=== PATIENT | female | born 1975 ===

== ENCOUNTER 2019-01-18 16:21 | Observation (INO) | payer MEDICAID ==
--- NOTE | 2019-01-18 20:17 | ED PDOC ---
HPI: General Adult Time Seen by Provider: 01/18/19 18:46 Chief Complaint (Nursing): Breast Problem Chief Complaint (Provider): Right breast pain History Per: Patient History/Exam Limitations: no limitations Onset/Duration Of Symptoms: Persistent Have you had recent travel within the past 21 days to any of the following countries: [place], [place], [place] or [place]?: No Current Symptoms Are (Timing): Still Present Additional History Per: Patient Additional Complaint(s): 43yo female, otherwise well with no past medical history, comes to ER reporting right sided breast pain. Patient has been having shoulder and right back pain x 3 weeks, and 2 weeks ago she noted swelling inside her right breast. She reports over the past 2 days, she has worsening pain to the site; no redness to breath, skin changes or nipple discharge. Patient has never had a mammogram before. Past Medical History Reviewed: Historical Data, Nursing Documentation, Vital Signs Vital Signs: Last Vital Signs Temp 98.8 F 01/18/19 16:41 Pulse 110 H 01/18/19 16:41 Resp 16 01/18/19 16:41 BP 152/96 H 01/18/19 16:41 Pulse Ox 100 01/18/19 16:41 Primary Care Provider: FAMILY PROVIDER,NO - Medical History PMH: No Chronic Diseases - Surgical History Surgical History: No Surg Hx - Family History Family History: States: Other Other Family History: depression, renal failure; no history of breast cancer - Social History Current smoker - smoking cessation education provided: No Alcohol: None Drugs: Denies - Home Medications Home Medications: Ambulatory Orders Medication Instructions Recorded Acetaminophen [Tylenol Extra 1,000 mg PO Q6 PRN #30 tablet 01/19/19 Strength] - Allergies Allergies/Adverse Reactions: Allergies Allergy/AdvReac Type Severity Reaction Status Date / Time No Known Allergies Allergy Unverified 01/18/19 16:42 Review of Systems ROS Statement: Except As Marked, All Systems Reviewed And Found Negative Musculoskeletal: Positive for: Shoulder Pain (right), Back Pain (right upper back), Other (right breast) Physical Exam - Reviewed Nursing Documentation Reviewed: Yes Vital Signs Reviewed: Yes - Physical Exam Appears: Positive for: Non-toxic, No Acute Distress Head Exam: Positive for: ATRAUMATIC, NORMAL INSPECTION, NORMOCEPHALIC Skin: Positive for: Normal Color Eye Exam: Positive for: Normal appearance Neck: Positive for: Supple Cardiovascular/Chest: Positive for: Regular Rate, Rhythm, Other (palpable firm and non-mobile mass at the inner lower quadrant of the right breast. No skin changes. No erythema. No tenderness. Minimal fluctuance (?)) Respiratory: Positive for: Normal Breath Sounds. Negative for: Respiratory Distress Extremity: Positive for: Normal ROM (FROM of right upper extremity). Negative for: Tenderness, Deformity Neurological/Psych: Positive for: Awake, Alert, Normal Tone - Laboratory Results Result Diagrams: 01/18/19 20:55 01/18/19 20:55 - ECG O2 Sat by Pulse Oximetry: 100 (RA) Pulse Ox Interpretation: Normal Medical Decision Making Medical Decision Making: Impression: Right breast pain Differential: Malignancy, abscess, benign tumor, mastitis Plan: -- Labs -- US Breast -- Toradol 30mg IV 2128 Name: BROOKE OSORIO Exam Date: January 18, 2019 7:59:46 PM EDT Modality Type: SD\US\RI Description: US - BREAST UNILATERAL Gender: F Laterality: Right : 73 Referring Physician: Edith Bryson EXAM: US right Breast Complete. CLINICAL HISTORY: Pain 12-3 o'clock TECHNIQUE: Sonographic images of the whole right breast, including the retroalveolar region with image documentation utilizing a linear transducer. COMPARISON: None provided. FINDINGS: SOLID MASSES: At the 2 o'clock position; there is demonstration of a 0.8 x 0.6 x 0.7 cm solid slightly heterogeneous mass. A neoplastic process cannot be excluded. At the 3 o'clock position adjacent to the chest wall, there is demonstration of a 1.2 x 0.6 cm heterogeneous solid mass. Its margins appear spiculated. This is suspicious for neoplasm. Correlation with additional breast imaging modalities is recommended. CYSTIC MASSES: None. ARCHITECTURAL DISTORTION: None. ACOUSTICAL SHADOWING: None. SKIN THICKENING: None. AXILLARY ADENOPATHY: None. IMPRESSION: 1. At the 3 o'clock position; there is demonstration of a 1.2 x 0.6 cm solid heterogeneous mass with spiculated margins. This is suspicious for neoplasm. Correlation with additional breast imaging modalities is recommended. 2. At the 2 o'clock position, there is demonstration of a 0.8 x 0.7 cm round solid slightly heterogeneous mass. A satellite neoplasm may be present. 3. Mammographic correlation is recommended. BIRADS 0: Additional evaluation. Electronically signed on January 18, 2019 9:15:09 PM EDT by: Eric Owens M.D., M.B.A., Certified By ABR [id number] Chiu, for surgical consult [id number] Nicolas, who accepts patient for admission Imaging findings as well as plan for admission discussed with patient, who is agreeable. ---- Scribe Attestation: Documented by Camille Barton acting as a scribe for Edith Bryson MD. Provider Scribe Attestation: All medical record entries made by the Scribe were at my direction and personally dictated by me. I have reviewed the chart and agree that the record accurately reflects my personal performance of the history, physical exam, medical decision making, and the department course for this patient. I have also personally directed, reviewed, and agree with the discharge instructions and disposition. Disposition - Clinical Impression Clinical Impression: Breast mass, right, Anemia - Disposition Disposition Time: 22:00 Condition: FAIR - Pt Status Changed To: Hospital Disposition Of: Inpatient - Admit Certification Admit to Inpatient:: After my assessment, the patient will require hospitalization for at least two midnights. This is because of the severity of symptoms shown, intensity of services needed, and/or the medical risk in this patient being treated as an outpatient. - POA Present On Arrival: None
[2019-01-18 20:59] LABS: BASO % 0.5 % (0.0-2.0); EOS # 0.1 K/uL (0.0-0.7); EOS % 0.6 % (0.0-4.0); HEMOGLOBIN 11.3 g/dL (12.0-16.0); LYMPH # 2.2 K/uL (1.0-4.3); LYMPH % 26.5 % (20.0-40.0); MEAN CORPUSCULAR HEMOGLOBIN 21.6 pg (27.0-31.0); MEAN CORPUSCULAR HGB CONC 33.1 g/dL (33.0-37.0); MEAN PLATELET VOLUME 9.8 fl (7.2-11.7); MONO # 0.6 K/uL (0.0-0.8); MONO % 7.3 % (0.0-10.0); NEUT # 5.3 K/uL (1.8-7.0); NEUT % 65.1 % (50.0-75.0); RBC 5.22 Mil/uL (3.80-5.20); RED CELL DISTRIBUTION WIDTH 18.5 % (11.5-14.5); WHITE BLOOD COUNT 8.1 K/uL (4.8-10.8)
[2019-01-18 21:12] LABS: ALB/GLOB RATIO 1.2 (1.0-2.1); ALBUMIN 4.9 g/dL (3.5-5.0); ALT/SGPT 29 U/L (9-52); AST/SGOT 30 U/L (14-36); BLOOD UREA NITROGEN 6 mg/dl (7-17); CALCIUM 9.6 mg/dL (8.4-10.2); GFR NON-AFRICAN AMERICAN > 60
[2019-01-18 21:41] LABS: MEAN CELL VOLUME 65.2 fl (81.0-99.0)
--- NOTE | 2019-01-18 23:20 | CP.PCM.CON ---
<Rosie Peter - Last Filed: 01/18/19 23:17> History of Present Illness - History of Present Illness History of Present Illness: General surgery consult note for Dr. Padmaja Peter, PGY-2 Pt seen/examined at bedside 43F w/PMH sig for ovarian cysts consulted for right breast mass x 3 weeks. Pt reports noticing right upper back pain 3 weeks ago, denies trauma to back or chest. Pain radiates to medial aspect of right breast, intermittent, severe, uncomfortable. No aggravating or alleviating factors identified. Admits to breast pain with menustration. Denies fevers, chills, N & V, nipple discharge, swelling of breast tissue, skin changes of breast tissue, ever having a mammogram, changes in bowel or bladder habits, other complaints. In ED- Right breast U/S with findings of 1.2 x 0.6 cm solid heterogenous mass w/spiculated margins at 2 o'clock position; 0.8 x0.7 cm round solid slightly heterogenenous mass, possible satellite neoplasm. BIRADS 0. PMH: ovarian cysts PSH: Denies All:NKDA SH: Denies ETOH, tobacco or illicit drug use FH: non contributory LMP: 2nd week of December PMD: Dr Khadijah Feldman Review of Systems - Review of Systems All systems: reviewed and no additional remarkable complaints except - Constitutional Constitutional: absent: Chills, Fever - Cardiovascular Cardiovascular: absent: Chest Pain - Respiratory Respiratory: absent: Cough - Gastrointestinal Gastrointestinal: absent: Abdominal Pain, Nausea, Vomiting - Genitourinary Genitourinary: absent: Difficulty Urinating, Hematuria - Reproductive: Female Reproductive:Female: Normal Menses. absent: Post Menopausal - Musculoskeletal Musculoskeletal: Back Pain - Integumentary Integumentary: absent: Dry Skin, New Lesions, Rash, Skin Pain - Neurological Neurological: absent: Weakness Past Patient History - Past Social History Alcohol: None Drugs: Denies - PSYCHIATRIC Hx Substance Use: No Meds Allergies/Adverse Reactions: Allergies Allergy/AdvReac Type Severity Reaction Status Date / Time No Known Allergies Allergy Unverified 01/18/19 16:42 Physical Exam - Constitutional Appears: Non-toxic, No Acute Distress - Head Exam Head Exam: ATRAUMATIC, NORMAL INSPECTION, NORMOCEPHALIC - Eye Exam Eye Exam: EOMI, Normal appearance - ENT Exam ENT Exam: Mucous Membranes Moist, Normal Exam - Neck Exam Neck exam: Positive for: Full Rom, Normal Inspection - Respiratory Exam Respiratory Exam: NORMAL BREATHING PATTERN Additional comments: Right breast with palpable tender mass at 3 o'clock position. No skin changes or nipple retraction bilaterally. No other lesions palpable. - Cardiovascular Exam Cardiovascular Exam: REGULAR RHYTHM, +S1, +S2 - GI/Abdominal Exam GI & Abdominal Exam: Normal Bowel Sounds, Soft. absent: Tenderness - Extremities Exam Extremities exam: Positive for: normal inspection - Back Exam Back exam: tenderness (right scapular area) - Neurological Exam Neurological exam: Alert, CN II-XII Intact, Oriented x3 - Psychiatric Exam Psychiatric exam: Normal Affect, Normal Mood - Skin Skin Exam: Dry, Intact, Normal Color, Warm Results - Vital Signs Recent Vital Signs: Last Vital Signs Temp 98.8 F 01/18/19 16:41 Pulse 110 H 01/18/19 16:41 Resp 16 01/18/19 16:41 BP 152/96 H 01/18/19 16:41 Pulse Ox 100 01/18/19 22:10 - Labs Result Diagrams: 01/18/19 20:55 01/18/19 20:55 Labs: Laboratory Results - last 24 hr 01/18/19 01/18/19 01/18/19 20:55 20:55 20:55 WBC 8.1 RBC 5.22 H Hgb 11.3 L Hct 34.0 MCV 65.2 L MCH 21.6 L MCHC 33.1 RDW 18.5 H Plt Count 316 MPV 9.8 Neut % (Auto) 65.1 Lymph % (Auto) 26.5 [place] % (Auto) 7.3 Eos % (Auto) 0.6 Baso % (Auto) 0.5 Neut # (Auto) 5.3 Lymph # (Auto) 2.2 [place] # (Auto) 0.6 Eos # (Auto) 0.1 Baso # (Auto) 0.0 Sodium 137 Potassium 3.8 Chloride 100 Carbon Dioxide 26 Anion Gap 15 BUN 6 L Creatinine 0.6 L Est GFR ( Amer) > 60 Est GFR (Non-Af Amer) > 60 Random Glucose 103 Lactic Acid 1.9 Calcium 9.6 Total Bilirubin 0.4 AST 30 ALT 29 Alkaline Phosphatase 69 Total Protein 8.9 H Albumin 4.9 Globulin 3.9 Albumin/Globulin Ratio 1.2 Assessment & Plan - Assessment and Plan (Free Text) Assessment: 43F w/Right breast pain with BIRADS 0 on breast U/S Plan: Admit to medical service Pain control Recommend IR guided biopsy of right breast lesion Recommend mammography Further care as per primary team DW DR. Zacarias Peter, PGY-2 - Date & Time Date: 01/18/19 Time: 23:18 <Armen Blas - Last Filed: 01/19/19 11:26> Meds - Medications Medications: Current Medications Dextrose/Sodium Chloride (Dextrose 5%/0.45% Ns 1000 Ml) 1,000 mls @ 80 mls/hr IV .[id number] JANY Stop: 01/20/19 06:24 Last Admin: 01/19/19 06:42 Dose: 80 mls/hr Morphine Sulfate (Morphine) 2 mg IVP Q4 PRN PRN Reason: Pain, moderate (4-7) Results - Vital Signs Recent Vital Signs: Last Vital Signs Temp 98.2 F 01/19/19 07:47 Pulse 80 01/19/19 07:47 Resp 20 01/19/19 07:47 BP 135/82 01/19/19 07:47 Pulse Ox 99 01/19/19 07:47 - Labs Result Diagrams: 01/18/19 20:55 01/18/19 20:55 Labs: Laboratory Results - last 24 hr 01/18/19 01/18/19 01/18/19 20:55 20:55 20:55 WBC 8.1 RBC 5.22 H Hgb 11.3 L Hct 34.0 MCV 65.2 L MCH 21.6 L MCHC 33.1 RDW 18.5 H Plt Count 316 MPV 9.8 Neut % (Auto) 65.1 Lymph % (Auto) 26.5 [place] % (Auto) 7.3 Eos % (Auto) 0.6 Baso % (Auto) 0.5 Neut # (Auto) 5.3 Lymph # (Auto) 2.2 [place] # (Auto) 0.6 Eos # (Auto) 0.1 Baso # (Auto) 0.0 Retic Count PT INR APTT Sodium 137 Potassium 3.8 Chloride 100 Carbon Dioxide 26 Anion Gap 15 BUN 6 L Creatinine 0.6 L Est GFR ( Amer) > 60 Est GFR (Non-Af Amer) > 60 Random Glucose 103 Lactic Acid 1.9 Calcium 9.6 Ferritin Total Bilirubin 0.4 AST 30 ALT 29 Alkaline Phosphatase 69 Total Protein 8.9 H Albumin 4.9 Globulin 3.9 Albumin/Globulin Ratio 1.2 Triglycerides Cholesterol LDL Cholesterol Direct HDL Cholesterol Vitamin B12 Thyroxine (T4) Total T3 TSH 3rd Generation 01/19/19 01/19/19 01/19/19 01:56 01:56 06:25 WBC RBC Hgb Hct MCV MCH MCHC RDW Plt Count MPV Neut % (Auto) Lymph % (Auto) [place] % (Auto) Eos % (Auto) Baso % (Auto) Neut # (Auto) Lymph # (Auto) [place] # (Auto) Eos # (Auto) Baso # (Auto) Retic Count 0.9 PT 12.6 INR 1.1 APTT 32.8 Sodium Potassium Chloride Carbon Dioxide Anion Gap BUN Creatinine Est GFR ( Amer) Est GFR (Non-Af Amer) Random Glucose Lactic Acid Calcium Ferritin 4.6 L Total Bilirubin AST ALT Alkaline Phosphatase Total Protein Albumin Globulin Albumin/Globulin Ratio Triglycerides Cholesterol LDL Cholesterol Direct HDL Cholesterol Vitamin B12 424 Thyroxine (T4) Total T3 TSH 3rd Generation 01/19/19 06:25 WBC RBC Hgb Hct MCV MCH MCHC RDW Plt Count MPV Neut % (Auto) Lymph % (Auto) [place] % (Auto) Eos % (Auto) Baso % (Auto) Neut # (Auto) Lymph # (Auto) [place] # (Auto) Eos # (Auto) Baso # (Auto) Retic Count PT INR APTT Sodium Potassium Chloride Carbon Dioxide Anion Gap BUN Creatinine Est GFR ( Amer) Est GFR (Non-Af Amer) Random Glucose Lactic Acid Calcium Ferritin Total Bilirubin AST ALT Alkaline Phosphatase Total Protein Albumin Globulin Albumin/Globulin Ratio Triglycerides 85 Cholesterol 218 H LDL Cholesterol Direct 155 H HDL Cholesterol 43 Vitamin B12 Thyroxine (T4) 9.18 Total T3 1.10 L TSH 3rd Generation 1.32 Assessment & Plan - Assessment and Plan (Free Text) Plan: 43yo F presents to ED right breast pain which initially started about 3 weeks ago. Pt reports pain increase in severity, localized and no denies any recent trauma. Denies any nipple discharge from either breast. Pt states at the same time she notice a mass to her right breast. No previous mammograms. Menarche at 14, 2 children PMHx: denies Pshx: denies allergy: nkda Fmhx: aunt hx of breast CA. gen: awake, alert, NAD heent: nc,at, eomi, perrla, no lympadenopathy no acute respiratory distress card: s1ss2 abd: soft, nt, nd, groin: no lymphadenopathy to groin area ext: from of motion to upper and lower extremities breast: left breast: no masses, no nipple retraction, no discharge, no axillary lympadenopathy right breast: ~2cm hard mass to 3oclock area, minimally tenderness, no fluctuate, no nipple discharge or skin retraction 43yo F with right breast -pt needs b/l mammogram -needs core needle biopsy of right breast mass -u/s of right axillary -pt needs to f/u in office after mammogramaand bx -discussed at length with patient the importance of getting biopsy done and mammogram to further decide on treatment options
[2019-01-19 03:07] LABS: FERRITIN 4.6 ng/Ml (6.24-137.0)
[2019-01-19] MEDS ORDERED: Dextrose 5%/0.45% NS 1,000 ML IV SCH (06:30)
[2019-01-19 06:58] LABS: INR 1.1; PROTHROMBIN TIME 12.6 Seconds (9.8-13.1)
[2019-01-19 07:01] LABS: PARTIAL THROMBOPLASTIN TIME 32.8 Seconds (25.6-37.1)
[2019-01-19 07:48] VITALS: BP 135/82; PULSE 80; RESP 20; TEMP 98.2
--- NOTE | 2019-01-19 08:26 | CP.PCM.PN ---
<Leon Mejias - Last Filed: 01/19/19 08:54> Subjective - Date & Time of Evaluation Date of Evaluation: 01/19/19 Time of Evaluation: 08:24 - Subjective Subjective: Surgery Progress Note for Dr. Blas 43F seen and evaluated at bedside this morning. No acute events overnight. No complaints this morning. Denies breast discharge or tenderness. Denies f/c, n/v/d, SOB, CP, or urinary symptoms. Objective - Vital Signs/Intake and Output Vital Signs (last 24 hours): Temp Pulse Resp BP Pulse Ox 98.2 F 80 20 135/82 99 01/19/19 07:47 01/19/19 07:47 01/19/19 07:47 01/19/19 07:47 01/19/19 07:47 - Medications Medications: Current Medications Dextrose/Sodium Chloride (Dextrose 5%/0.45% Ns 1000 Ml) 1,000 mls @ 80 mls/hr IV .[id number] JANY Stop: 01/20/19 06:24 Last Admin: 01/19/19 06:42 Dose: 80 mls/hr Morphine Sulfate (Morphine) 2 mg IVP Q4 PRN PRN Reason: Pain, moderate (4-7) - Labs Labs: 01/18/19 20:55 01/18/19 20:55 PT 12.6 Seconds (9.8-13.1) 01/19/19 06:25 INR 1.1 01/19/19 06:25 APTT 32.8 Seconds (25.6-37.1) 01/19/19 06:25 - Constitutional Appears: Well, Non-toxic, No Acute Distress - Head Exam Head Exam: ATRAUMATIC, NORMAL INSPECTION, NORMOCEPHALIC - Eye Exam Eye Exam: EOMI - ENT Exam ENT Exam: Mucous Membranes Moist - Respiratory Exam Respiratory Exam: Clear to Ausculation Bilateral, NORMAL BREATHING PATTERN - Cardiovascular Exam Cardiovascular Exam: REGULAR RHYTHM, +S1, +S2. absent: Murmur - GI/Abdominal Exam GI & Abdominal Exam: Soft, Normal Bowel Sounds. absent: Tenderness - Back Exam Back Exam: absent: CVA tenderness (L), CVA tenderness (R), paraspinal tenderness, rash noted - Neurological Exam Neurological Exam: Alert, Awake, Oriented x3 - Psychiatric Exam Psychiatric exam: Normal Affect, Normal Mood - Skin Skin Exam: Dry, Intact, Normal Color, Warm Assessment and Plan - Assessment and Plan (Free Text) Assessment: 43F w/ right breast mass seen on US Plan: Recommend mammogram - if can be done inpatient proceed Recommend biopsy of the lesions per IR Patient needs appropriate diagnosing and staging, typically done in the outpatient setting Further recs per Dr. Wan Mejias PGY1 <Armen Blas - Last Filed: 01/19/19 11:27> Objective - Vital Signs/Intake and Output Vital Signs (last 24 hours): Temp Pulse Resp BP Pulse Ox 98.2 F 80 20 135/82 99 01/19/19 07:47 01/19/19 07:47 01/19/19 07:47 01/19/19 07:47 01/19/19 07:47 - Medications Medications: Current Medications Dextrose/Sodium Chloride (Dextrose 5%/0.45% Ns 1000 Ml) 1,000 mls @ 80 mls/hr IV .[id number] JANY Stop: 01/20/19 06:24 Last Admin: 01/19/19 06:42 Dose: 80 mls/hr Morphine Sulfate (Morphine) 2 mg IVP Q4 PRN PRN Reason: Pain, moderate (4-7) - Labs Labs: 01/18/19 20:55 01/18/19 20:55 PT 12.6 Seconds (9.8-13.1) 01/19/19 06:25 INR 1.1 01/19/19 06:25 APTT 32.8 Seconds (25.6-37.1) 01/19/19 06:25 Assessment and Plan - Assessment and Plan (Free Text) Plan: needs core needle biopsy of right breast mass b/l mammo u/s of right axillary f/u as outpatient in office for further management
[2019-01-19 08:47] LABS: T3 1.1 nmol/L (1.49-2.60)
--- NOTE | 2019-01-19 09:41 | US ---
Date of service: 01/18/2019 PROCEDURE: Diagnostic right breast ultrasound examination HISTORY: RIGTH breast pain mass v abscess COMPARISON: Not available TECHNIQUE: Targeted ultrasound examination of the right breast was performed throughout the medial half of the breast. FINDINGS: In the 2 o'clock axis, 1-2 cm from the nipple, there is a hypoechoic mildly irregular solid mass with no significant vascularity. This measures 6 x 7 x 8 mm. Further evaluation with mammography is advised. In the 3-4 o'clock axis, an unspecified distance from the nipple, there is a hypoechoic irregular mass with internal vascularity measuring 0.6 x 1.2 x 1.2 cm. There is no posterior acoustic shadowing. Again, correlation with mammographic examination is advised. No other solid or cystic mass is identified in the medial half of the right breast. There is no significant right axillary lymphadenopathy. IMPRESSION: Two suspicious solid masses in the right breast as described, in the 2 o'clock and 3-4 o'clock axes. Correlation with mammography is advised. BIRADS 0 Incomplete - Need additional imaging evaluation and/or prior mammograms for comparison Recommendation: Recall for additional imaging and/or comparison with prior examination, as described above. Patient will be contacted. The preliminary findings for this examination were reported by [facility] at 9:15 p.m. on 01/18/2019. There is concurrence of this report with the preliminary findings.
--- NOTE | 2019-01-19 10:50 | RAD ---
Date of service: 01/18/2019 HISTORY: chest pain COMPARISON: No prior. TECHNIQUE: Chest PA and lateral views FINDINGS: LUNGS: No active pulmonary disease. PLEURA: No significant pleural effusion identified. No pneumothorax apparent. CARDIOVASCULAR: No aortic atherosclerotic calcification present. Normal cardiac size. No pulmonary vascular congestion. OSSEOUS STRUCTURES: No significant abnormalities. VISUALIZED UPPER ABDOMEN: Normal. OTHER FINDINGS: None. IMPRESSION: No active disease.
[2019-01-19 13:01] LABS: FOLATE > 20.0 ng/mL
--- NOTE | 2019-01-19 13:15 | CP.PCM.PCO ---
Assessment/Plan - Assessment/Plan Assessment (Free Text): Pt stable, reports a little [place] to R breast otherwise feels ok. Pt seen by Sx who recommend IR needle bx and mammogram. Spoke to Dr. Carpenter, pt needs mammo before bx. Appt arranged for by to get mammo as outpt, Rx give. Pt seen by Dr. Kellogg, he will see pt after mammo is done and will coordinate bx and sx if needed. Pt seen and cleared for d/c home by Dr. Nicolas with outpt f/u
--- NOTE | 2019-01-19 13:57 | CP.PCM.HP ---
History of Present Illness - History of Present Illness History of Present Illness: CC: R breast pain. 40 y/o F, no chronic PMHx but Ovarian Cyst, [facility] be [facility] for R Breast pain, onset 3 weeks ago, Pt using Tylenol with no relief. Worsening symptoms: Breast pain increased with menstruation. Aggravated factor: Never had a Mammogram before. Pt denied: Trauma, fever, chills, n/v/d, abdominal pain, urinary symptoms, CP, palpitations, SOB, cough, sick contact, recent travel out of [facility]. EKG: Sinus tachycardia. CXR: No active disease. Breast U/S: Two suspicious solid masses in the R breast, as in 2 O'clock and in 3-4 O'clock. Present on Admission - Present on Admission Any Indicators Present on Admission: No Review of Systems - Constitutional Constitutional: Other (negative) - EENT Eyes: Other (negative) Ears: Other (negative) Nose/Mouth/Throat: Other (negative) - Breasts Breasts: As Per HPI, Mass (R breast), Pain (R breast) - Cardiovascular Cardiovascular: Rapid Heart Rate - Respiratory Respiratory: Other (negative) - Gastrointestinal Gastrointestinal: Other (negative) - Genitourinary Genitourinary: Other (negtaive) - Musculoskeletal Musculoskeletal: Back Pain (upper), Other (R shoulder pain) - Integumentary Integumentary: Other (negative) - Neurological Neurological: Other (negative) - Psychiatric Psychiatric: Other (negative) - Endocrine Endocrine: Other (negative) - Hematologic/Lymphatic Hematologic: Other (negative) Past Patient History - Past Medical History & Family History Past Medical History?: Yes Pertinent Family History: Aunt Hx of Breast Ca. - Past Social History Smoking Status: Never Smoked Alcohol: None Drugs: Denies Home Situation {Lives}: With Family - CARDIAC Hx Cardiac Disorders: No - PULMONARY Hx Respiratory Disorders: No - NEUROLOGICAL Hx Neurological Disorder: No - HEENT Hx HEENT Problems: No - RENAL Hx Chronic Kidney Disease: No - ENDOCRINE/METABOLIC Hx Endocrine Disorders: No - HEMATOLOGICAL/ONCOLOGICAL Hx Blood Disorders: No Hx AIDS: No Hx Human Immunodeficiency Virus (HIV): No - INTEGUMENTARY Hx Dermatological Problems: No - MUSCULOSKELETAL/RHEUMATOLOGICAL Hx Musculoskeletal Disorders: No Hx Falls: No - GASTROINTESTINAL Hx Gastrointestinal Disorders: No - GENITOURINARY/GYNECOLOGICAL Hx Genitourinary Disorders: Yes (Ovarian Cyst) - PSYCHIATRIC Hx Psychophysiologic Disorder: No Hx Substance Use: No - SURGICAL HISTORY Hx Surgeries: Yes Other/Comment: Ovarian cyst - ANESTHESIA Hx Anesthesia: Yes Meds Home Medications: Home Medication List Medication Instructions Recorded Confirmed Type Acetaminophen [Tylenol Extra 1,000 mg PO Q6 PRN #30 tablet 01/19/19 Rx Strength] Allergies/Adverse Reactions: Allergies Allergy/AdvReac Type Severity Reaction Status Date / Time No Known Allergies Allergy Unverified 01/18/19 16:42 Physical Exam - Constitutional Appears: No Acute Distress - Head Exam Head Exam: NORMAL INSPECTION - Eye Exam Eye Exam: PERRL - ENT Exam ENT Exam: Normal Exam - Neck Exam Neck exam: Positive for: Normal Inspection - Respiratory Exam Respiratory Exam: NORMAL BREATHING PATTERN Additional comments: R breast palpable mass - Cardiovascular Exam Cardiovascular Exam: REGULAR RHYTHM - GI/Abdominal Exam GI & Abdominal Exam: Normal Bowel Sounds, Soft - Extremities Exam Extremities exam: Positive for: normal inspection - Back Exam Back exam: tenderness (R scapular area) - Neurological Exam Neurological exam: Alert, Oriented x3 Additional comments: No motor/sensory deficit - Psychiatric Exam Psychiatric exam: Normal Mood - Skin Skin Exam: Normal Color, Warm Results - Vital Signs Recent Vital Signs: Last Vital Signs Temp 98.2 F 01/19/19 07:47 Pulse 80 01/19/19 07:47 Resp 20 01/19/19 07:47 BP 135/82 01/19/19 07:47 Pulse Ox 99 01/19/19 07:47 reviewed J.PAnurag - Labs Result Diagrams: 01/18/19 20:55 01/18/19 20:55 Labs: Laboratory Results - last 24 hr 01/18/19 01/18/19 01/18/19 20:55 20:55 20:55 WBC 8.1 RBC 5.22 H Hgb 11.3 L Hct 34.0 MCV 65.2 L MCH 21.6 L MCHC 33.1 RDW 18.5 H Plt Count 316 MPV 9.8 Neut % (Auto) 65.1 Lymph % (Auto) 26.5 [place] % (Auto) 7.3 Eos % (Auto) 0.6 Baso % (Auto) 0.5 Neut # (Auto) 5.3 Lymph # (Auto) 2.2 [place] # (Auto) 0.6 Eos # (Auto) 0.1 Baso # (Auto) 0.0 Retic Count PT INR APTT Sodium 137 Potassium 3.8 Chloride 100 Carbon Dioxide 26 Anion Gap 15 BUN 6 L Creatinine 0.6 L Est GFR ( Amer) > 60 Est GFR (Non-Af Amer) > 60 Random Glucose 103 Lactic Acid 1.9 Calcium 9.6 Ferritin Total Bilirubin 0.4 AST 30 ALT 29 Alkaline Phosphatase 69 Total Protein 8.9 H Albumin 4.9 Globulin 3.9 Albumin/Globulin Ratio 1.2 Triglycerides Cholesterol LDL Cholesterol Direct HDL Cholesterol CA 15-3 Antigen Vitamin B12 Folate Thyroxine (T4) Total T3 TSH 3rd Generation 01/19/19 01/19/19 01/19/19 01:56 01:56 06:25 WBC RBC Hgb Hct MCV MCH MCHC RDW Plt Count MPV Neut % (Auto) Lymph % (Auto) [place] % (Auto) Eos % (Auto) Baso % (Auto) Neut # (Auto) Lymph # (Auto) [place] # (Auto) Eos # (Auto) Baso # (Auto) Retic Count 0.9 PT 12.6 INR 1.1 APTT 32.8 Sodium Potassium Chloride Carbon Dioxide Anion Gap BUN Creatinine Est GFR ( Amer) Est GFR (Non-Af Amer) Random Glucose Lactic Acid Calcium Ferritin 4.6 L Total Bilirubin AST ALT Alkaline Phosphatase Total Protein Albumin Globulin Albumin/Globulin Ratio Triglycerides Cholesterol LDL Cholesterol Direct HDL Cholesterol CA 15-3 Antigen 27.2 Vitamin B12 424 Folate > 20.0 Thyroxine (T4) Total T3 TSH 3rd Generation 01/19/19 06:25 WBC RBC Hgb Hct MCV MCH MCHC RDW Plt Count MPV Neut % (Auto) Lymph % (Auto) [place] % (Auto) Eos % (Auto) Baso % (Auto) Neut # (Auto) Lymph # (Auto) [place] # (Auto) Eos # (Auto) Baso # (Auto) Retic Count PT INR APTT Sodium Potassium Chloride Carbon Dioxide Anion Gap BUN Creatinine Est GFR ( Amer) Est GFR (Non-Af Amer) Random Glucose Lactic Acid Calcium Ferritin Total Bilirubin AST ALT Alkaline Phosphatase Total Protein Albumin Globulin Albumin/Globulin Ratio Triglycerides 85 Cholesterol 218 H LDL Cholesterol Direct 155 H HDL Cholesterol 43 CA 15-3 Antigen Vitamin B12 Folate Thyroxine (T4) 9.18 Total T3 1.10 L TSH 3rd Generation 1.32 reviewed J.P. - EKG Data EKG comments: reviewed LexiiPAnurag - Imaging and Cardiology CT scan - chest Status: Report reviewed by me CT scan - abdomen Status: Report reviewed by me (Isaiah) Breast U-S Status: Report reviewed by me (Isaiah) Assessment & Plan (1) Breast mass, right Status: Acute Priority: High (2) Pain of right breast Status: Acute Priority: High - Assessment and Plan (Free Text) Plan: Pt clear by Hematology entry level sales consultant, f/u Mammogram as out PT f/u with Hematology entry level sales consultant as out PT. Biopsy of the R breast mass. F/U with PMD in a week. - Date & Time Date: 01/19/19 Time: 08:40
--- NOTE | 2019-01-19 17:03 | CARD ---
APPROVED REPORT Date of service: 01/18/2019 EKG Measurement Heart [id number] <Conclusion> Sinus tachycardia Nonspecific ST and T wave abnormality Abnormal ECG
--- NOTE | 2019-01-20 11:32 | CP.PCM.CON ---
History of Present Illness - History of Present Illness History of Present Illness: 43 year old female with no past medical history presenting with right breast pain found to have 2 lesions in the right breast. The patient notes to pain in her right breast over 3 weeks time. She denies fevers and chills. She has not had a mammogram in the past. An US of the breast revealed a 1.2cm mass and 8mm mass in the right breast. She denies bone pain and headache. Past medical history: None Past surgical history: None Family history: Aunt had breast cancer in her 40s Social history: Denies tobacco, alcohol, and illicit drug use. Allergies: NKA Review of systems: All remaining review of systems including HEENT, cardiovascular, respiratory, gastrointestinal, genitourinary, musculoskeletal, dermatologic, neurologic, and psychiatric are negative unless mentioned in the HPI. Past Patient History - Past Medical History & Family History Past Medical History?: Yes - Past Social History Smoking Status: Never Smoked Alcohol: None Drugs: Denies Home Situation {Lives}: With Family - CARDIAC Hx Cardiac Disorders: No - PULMONARY Hx Respiratory Disorders: No - NEUROLOGICAL Hx Neurological Disorder: No - HEENT Hx HEENT Problems: No - RENAL Hx Chronic Kidney Disease: No - ENDOCRINE/METABOLIC Hx Endocrine Disorders: No - HEMATOLOGICAL/ONCOLOGICAL Hx Blood Disorders: No Hx AIDS: No Hx Human Immunodeficiency Virus (HIV): No - INTEGUMENTARY Hx Dermatological Problems: No - MUSCULOSKELETAL/RHEUMATOLOGICAL Hx Musculoskeletal Disorders: No Hx Falls: No - GASTROINTESTINAL Hx Gastrointestinal Disorders: No - GENITOURINARY/GYNECOLOGICAL Hx Genitourinary Disorders: Yes (Ovarian Cyst) - PSYCHIATRIC Hx Psychophysiologic Disorder: No Hx Substance Use: No - SURGICAL HISTORY Hx Surgeries: Yes Other/Comment: Ovarian cyst - ANESTHESIA Hx Anesthesia: Yes Meds Home Medications: Home Medication List Medication Instructions Recorded Confirmed Type Acetaminophen [Tylenol Extra 1,000 mg PO Q6 PRN #30 tablet 01/19/19 Rx Strength] Allergies/Adverse Reactions: Allergies Allergy/AdvReac Type Severity Reaction Status Date / Time No Known Allergies Allergy Unverified 01/18/19 16:42 Physical Exam - Head Exam Head Exam: ATRAUMATIC - Eye Exam Eye Exam: Normal appearance - ENT Exam ENT Exam: Mucous Membranes Dry - Respiratory Exam Respiratory Exam: NORMAL BREATHING PATTERN - Cardiovascular Exam Cardiovascular Exam: +S1, +S2 - GI/Abdominal Exam GI & Abdominal Exam: Normal Bowel Sounds - Extremities Exam Extremities exam: Positive for: normal inspection - Neurological Exam Neurological exam: Oriented x3 - Psychiatric Exam Psychiatric exam: Normal Affect, Normal Mood - Skin Skin Exam: Warm Results - Vital Signs Recent Vital Signs: Last Vital Signs Temp 98.2 F 01/19/19 07:47 Pulse 80 01/19/19 07:47 Resp 20 01/19/19 07:47 BP 135/82 01/19/19 07:47 Pulse Ox 99 01/19/19 07:47 - Labs Result Diagrams: 01/18/19 20:55 01/18/19 20:55 Labs: Laboratory Results - last 24 hr 01/19/19 01:56 CA 15-3 Antigen 27.2 Folate > 20.0 Assessment & Plan (1) Breast mass, right Assessment and Plan: will need mammogram and biopsy mammogram to be scheduled for the patient as outpatient f/u with me after mammogram Status: Acute Priority: High (2) Anemia Assessment and Plan: work up consistent with iron deficiency anemia outpatient PO iron Thank you for this interesting consult. Status: Acute
--- NOTE | 2019-01-21 11:16 | CP.PCM.DIS ---
Provider - Provider Date of Admission: 01/18/19 22:08 Attending physician: Kervin Nicolas MD Consults: 01/18/19 22:11 Surgery [General Surgery Consult] Stat Comment: Consulting Provider: Fco Adames Consulting Physician: Fco Adames Reason for Consult: RIGHT breast mass possible cancer 01/18/19 22:12 Hematology Oncology Consult Routine Comment: Consulting Provider: Gentry Kellogg Consulting Physician: Gentry Kellogg Reason for Consult: RIGHT breast mass Time Spent in preparation of Discharge (in minutes): 35 Diagnosis - Discharge Diagnosis (1) Breast mass, right Status: Acute Priority: High (2) Pain of right breast Status: Acute Priority: High Hospital Course - Lab Results Lab Results: Micro Results 01/18/19 21:20 Blood-Venous Blood Culture - Preliminary NO GROWTH AFTER 48 HOURS 01/18/19 20:48 Blood-Venous Blood Culture - Preliminary NO GROWTH AFTER 48 HOURS Most Recent Lab Values WBC 8.1 K/uL (4.8-10.8) 01/18/19 20:55 RBC 5.22 Mil/uL (3.80-5.20) H 01/18/19 20:55 Hgb 11.3 g/dL (12.0-16.0) L 01/18/19 20:55 Hct 34.0 % (34.0-47.0) 01/18/19 20:55 MCV 65.2 fl (81.0-99.0) L 01/18/19 20:55 MCH 21.6 pg (27.0-31.0) L 01/18/19 20:55 MCHC 33.1 g/dL (33.0-37.0) 01/18/19 20:55 RDW 18.5 % (11.5-14.5) H 01/18/19 20:55 Plt Count 316 K/uL (130-400) 01/18/19 20:55 MPV 9.8 fl (7.2-11.7) 01/18/19 20:55 Neut % (Auto) 65.1 % (50.0-75.0) 01/18/19 20:55 Lymph % (Auto) 26.5 % (20.0-40.0) 01/18/19 20:55 [place] % (Auto) 7.3 % (0.0-10.0) 01/18/19 20:55 Eos % (Auto) 0.6 % (0.0-4.0) 01/18/19 20:55 Baso % (Auto) 0.5 % (0.0-2.0) 01/18/19 20:55 Neut # (Auto) 5.3 K/uL (1.8-7.0) 01/18/19 20:55 Lymph # (Auto) 2.2 K/uL (1.0-4.3) 01/18/19 20:55 [place] # (Auto) 0.6 K/uL (0.0-0.8) 01/18/19 20:55 Eos # (Auto) 0.1 K/uL (0.0-0.7) 01/18/19 20:55 Baso # (Auto) 0.0 K/uL (0.0-0.2) 01/18/19 20:55 Retic Count 0.9 % (0.5-1.5) 01/19/19 01:56 PT 12.6 Seconds (9.8-13.1) 01/19/19 06:25 INR 1.1 01/19/19 06:25 APTT 32.8 Seconds (25.6-37.1) 01/19/19 06:25 Sodium 137 mmol/l (132-148) 01/18/19 20:55 Potassium 3.8 MMOL/L (3.6-5.0) 01/18/19 20:55 Chloride 100 mmol/L (98-107) 01/18/19 20:55 Carbon Dioxide 26 mmol/L (22-30) 01/18/19 20:55 Anion Gap 15 (10-20) 01/18/19 20:55 BUN 6 mg/dl (7-17) L 01/18/19 20:55 Creatinine 0.6 mg/dl (0.7-1.2) L 01/18/19 20:55 Est GFR ( Amer) > 60 01/18/19 20:55 Est GFR (Non-Af Amer) > 60 01/18/19 20:55 Random Glucose 103 mg/dL (65-105) 01/18/19 20:55 Lactic Acid 1.9 mmol/L (0.7-2.1) 01/18/19 20:55 Calcium 9.6 mg/dL (8.4-10.2) 01/18/19 20:55 Ferritin 4.6 ng/Ml (6.24-137.0) L 01/19/19 01:56 Total Bilirubin 0.4 mg/dl (0.2-1.3) 01/18/19 20:55 AST 30 U/L (14-36) 01/18/19 20:55 ALT 29 U/L (9-52) 01/18/19 20:55 Alkaline Phosphatase 69 U/L (38-126) 01/18/19 20:55 Total Protein 8.9 G/DL (6.3-8.2) H 01/18/19 20:55 Albumin 4.9 g/dL (3.5-5.0) 01/18/19 20:55 Globulin 3.9 gm/dL (2.2-3.9) 01/18/19 20:55 Albumin/Globulin Ratio 1.2 (1.0-2.1) 01/18/19 20:55 Triglycerides 85 mg/DL (0-149) 01/19/19 06:25 Cholesterol 218 mg/dL (0-199) H 01/19/19 06:25 LDL Cholesterol Direct 155 mg/dL (0-129) H 01/19/19 06:25 HDL Cholesterol 43 MG/DL (30-70) 01/19/19 06:25 CA 15-3 Antigen 27.2 U/mL (0-35) 01/19/19 01:56 Vitamin B12 424 pg/mL (239-931) 01/19/19 01:56 Folate > 20.0 ng/mL 01/19/19 01:56 Thyroxine (T4) 9.18 ug/dl (5.5-11.0) 01/19/19 06:25 Total T3 1.10 nmol/L (1.49-2.60) L 01/19/19 06:25 TSH 3rd Generation 1.32 mIU/ML (0.46-4.68) 01/19/19 06:25 - Date & Time of H&P Date of H&P: 01/19/19 Time of H&P: 08:40 Discharge Exam - Head Exam Head Exam: NORMAL INSPECTION Discharge Plan - Discharge Medications Prescriptions: RX: Acetaminophen [Tylenol Extra Strength] 1,000 mg PO Q6 PRN #30 tablet PRN Reason: Pain, Moderate (4-7) - Follow Up Plan Condition: FAIR Disposition: HOME/ ROUTINE Instructions: Mammography, Breast Biopsy (DC) Additional Instructions: hacer sonny con carmona doctor primario dentro de [address] Kellogg (oncologia) despues de hacer mamografia sonny para mamografia en [facility] [address] a las 11:45am Referrals: Gentry Kellogg MD [Staff Provider] - Fco Adames MD [Staff Provider] - Dee Feldman MD [Family Provider] -
[2019-01-21 21:13] VITALS: O2SAT 100
== END 2019-01-19 14:46 | disposition home or self-care (01) ==
LOC: H.ER 16:21 → H.ERHOLD 20:50 → UNDOADMIN 20:50 → INTOOBSV 22:08 → H.ERHOLD 22:08 → H.MEDSURG1 01-19 03:12
PROVIDERS: ADMIT Internal Medicine Pulmonary Disease; ATTEND Internal Medicine Pulmonary Disease
DX: N63.10 Unspecified lump in the right breast, unspecified quadrant (principal); N64.4 Mastodynia; Z80.3 Family history of malignant neoplasm of breast; Z81.8 Family history of other mental and behavioral disorders; M54.6 Pain in thoracic spine; M54.9 Dorsalgia, unspecified; R00.0 Tachycardia, unspecified; D50.9 Iron deficiency anemia, unspecified
CPT/HCPCS: 36415; 71046; 76641; 80053; 80061; 81025; 82607; 82728; 82746; 83605; 84436; 84443; 84480; 85025; 85044; 85610; 85730; 86300; 87040; 93005; 99284; G0378; J1885; J7042